=== PATIENT | male | born 1940 | race Caucasian/White ===

== ENCOUNTER 2023-10-12 09:05 | Day surgery (SDC) | payer MEDICARE, OTHER, SELFPAY ==
--- NOTE | 2023-10-12 18:22 | ITS.CL.CARDI ---
Accounts Payables Clerk - Cardioversion
Cardioversion
Procedure Report:
Date of Procedure: 10/12/2023
Procedure: Cardioversion
Indication: Symptomatic atrial fibrillation
Performing Physician: Emilee Chisholm DO [facility]
Anticoagulation: Eliquis
Technique: The patient was brought to the holding area. Signed informed consent was obtained. A time out was called and performed. The patient was anesthetized by the anesthesia service. Anticoagulation status was reviewed and appropriate. R2 pads
were placed anteriorly and posteriorly. A 200 J synchronized biphasic shock restored normal sinus rhythm without significant bradycardia. There were no complications.
Conclusion: Uncomplicated cardioversion from atrial fibrillation to sinus rhythm.
Recommendation: Routine post cardioversion care. Continue keno terminal operator anticoagulation.
== END 2023-10-12 10:15 | disposition home or self-care (01) ==
LOC: CATH 09:05
PROVIDERS: ATTENDING PHYSICIAN Internal Medicine Cardiovascular Disease; FAMILY PHYSICIAN Nurse Practitioner Family; OTHER PHYSICIAN Internal Medicine Cardiovascular Disease
DX: I48.0 Paroxysmal atrial fibrillation (principal); I10 Essential (primary) hypertension; E78.5 Hyperlipidemia, unspecified; Z87.891 Personal history of nicotine dependence; Z79.01 Long term (current) use of anticoagulants
CPT/HCPCS: 92960; 93005

== ENCOUNTER → 2023-11-12 07:54 | Outpatient (REF) | payer MEDICARE, OTHER, SELFPAY | LOC: DHCBC/DCA 07:54 | PROVIDERS: ATTENDING PHYSICIAN Nurse Practitioner; FAMILY PHYSICIAN Nurse Practitioner Family; REFERRING PHYSICIAN Internal Medicine Cardiovascular Disease | DX: I48.0 Paroxysmal atrial fibrillation (principal) | CPT/HCPCS: 78452; 93017; A9500; J2785 ==

== ENCOUNTER → 2023-11-20 11:24 | Outpatient (REF) | payer MEDICARE, OTHER, SELFPAY | LOC: HWRCS 11:24 | PROVIDERS: ATTENDING PHYSICIAN Internal Medicine Cardiovascular Disease; FAMILY PHYSICIAN Nurse Practitioner Family | DX: I48.0 Paroxysmal atrial fibrillation (principal); I10 Essential (primary) hypertension; I47.10 Supraventricular tachycardia, unspecified | CPT/HCPCS: 93306 ==

== ENCOUNTER → 2023-11-26 09:17 | Day surgery (SDC) | payer MEDICARE, OTHER, SELFPAY ==
[2023-11-26 09:30] VITALS: BMI 32.1
--- NOTE | 2023-11-26 10:50 | ITS.CL.CARDI ---
Tile Roofer - Cardioversion
Cardioversion
Procedure Report:
Date of Procedure: Nov 26 2023
Procedure: Cardioversion
Indication: Symptomatic atrial fibrillation
Performing Physician: Keith Weir DO, FACC
Technique: The patient was brought to the holding area. Signed informed consent was obtained. A time out was called and performed. The patient was anesthetized by the anesthesia service. Anticoagulation status was reviewed and appropriate. R2 pads
were placed anteriorly and posteriorly. A 250 J synchronized biphasic shock restored normal sinus rhythm without significant bradycardia. There were no complications.
Conclusion: Uncomplicated cardioversion from atrial fibrillation to sinus rhythm.
Recommendation: Routine post cardioversion care. Continue penitentiary anticoagulation.
== END ==
LOC: CATH 09:17
PROVIDERS: ATTENDING PHYSICIAN Nuclear Medicine Nuclear Cardiology; FAMILY PHYSICIAN Nurse Practitioner Family; OTHER PHYSICIAN Internal Medicine Cardiovascular Disease
DX: I48.0 Paroxysmal atrial fibrillation (principal); I10 Essential (primary) hypertension; E78.5 Hyperlipidemia, unspecified; Z87.891 Personal history of nicotine dependence; Z79.01 Long term (current) use of anticoagulants; Z79.82 Long term (current) use of aspirin
CPT/HCPCS: 92960; 93005

== ENCOUNTER 2024-03-03 06:12 | Day surgery (SDC) | payer MEDICARE, OTHER, SELFPAY ==
[2024-02-25 10:33] VITALS: BMI 32.3
[2024-03-03] VITALS (23 sets, daily range): BP systolic 131–164; BP diastolic 59–80; BMI 32.9
--- NOTE | 2024-03-03 08:05 | ITS.CL.ABL ---
Medical Assembly - Ablation
Ablation
Procedure Report:
ELECTROPHYSIOLOGIC STUDY AND POSSIBLE ABLATION
DATE: March 03, 2024
Primary Care Provider: KRISTIE Evans
INDICATION:
Symptomatic Atrial Fibrillation.
Persistent
HISTORY: See H and P.
Symptomatic AF, poorly controlled with attempted medical .
He has history of symptomatic atrial fibrillation, atrial flutter and morecently atrial tachycardia.
� -� ablation of atrial flutter as well as Cryo�pulmonary vein isolation in Nov 2016.
� -� amiodarone initiated 11/12/2023
� -� cardioversion on 11/26/2023
� -� Amiodarone discontinued in December 2023 due to symptomatic bradycardia
� -� seen in the emergency department December 30, 2022 for palpitations and cardioverted from atrial tachycardia to sinus rhythmtherapy
HAS-BLED:
Age
CHADSVASc: 3
HTN
Age
PRESENTING RHYTHM: SR
HISTORY: See H and P.
Symptomatic AF, poorly controlled with attempted medical therapy.
ANTICOAGULATION: Apixaban 5 mg twice daily
'TIME-OUT': called and confirmed.
SEDATION/ANESTHESIA: provided via the anesthesia department using general anesthesia.
PROCEDURE:
Ultrasound Guidance performed by pa was utilized for femoral venous Vascular Access b/l.
A decapolar CS catheter was placed within the CS for mapping and pacing.
The intracardiac ultrasound catheter was positioned in the RA for continuous intracardiac ultrasound imaging.
Heparin bolus and infusion to target ACT at 300 -350 seconds was administered. Transseptal puncture was performed. This entailed advancing a sheath with dilator into the superior vena cava and withdrawing both (monitoring intracardiac ultrasound,
fluoroscopy and tip pressure) with the tip oriented toward the atrial septum. The fossa ovalis was engaged (indicated by sudden displacement of the sheath tip as well as tenting of the fossa seen on intracardiac ultrasound).
The [employer] transseptal system was used. Left atrial catheter position was confirmed by echocardiographic imaging and fluoroscopy followed by RF delivery using the [employer] system resulting in successful LA access with pressure monitoring
demonstrating LA pressure waveforms (LA mean pressure 12 mm Hg). The sheath was advanced over the dilator and positioned in the left atrium.
The [employer] multipolar mapping catheter was initially positioned through the transseptal sheath for high density mapping.
Geometry and voltage mapping was performed using the [employer] multipolar grid catheter. [employer] was utilized for three-dimensional electroanatomical mapping.
A 3-D map was created using [employer] in Voxel mode. A 3-D reconstructed CT image was compared to the 3-D [employer] map to assist in anatomic evaluation, mapping and ablation.
Mapping in sinus rhythm findings electrical isolation of the ostia of the LSPV, LIPV, and RIPV with a small area of reconnection at the RSPV ant-sup quadrant.
The [employer] PFA catheter and system was used for cardiac ablation. Catheter positioning was guided and confirmed using both I.C.E. and fluoroscopy.
PV re-isolation as well as LA post wall ablation as an additional ablation set was the approach. At completion of pulsed field ablation of the left atrium remapping finds entrance and exit block at each PV ostia (LSPV, LIPV, RSPV, RIPV) as well as
the posterior wall of the left atrium.
Programmed electrical stimulation was then performed. With burst atrial pacing at 250 ms and atrial flutter is induced. Extensive activation as well as entrainment mapping of both the left atrium and the right atrium defines right atrial CTI
dependent clockwise flutter. The PFA catheter was repositioned within the right atrium. Phenylephrine was used to increase his systolic blood pressure to greater than 150 mmHg. Then 200 mcg of nitroglycerin intravenously was administered. Then,
using a ' basket' and 'olive' configuration PFA was delivered to the CTI at a 6:00 line and JOHAN 30 degrees. With PFA delivery first at the inferior border of the line atrial flutter terminated to sinus rhythm. Additional applications were
delivered to complete a PFA line from the inferior vena cava to the tricuspid valve annulus. There is no ST segment changes on twelve-lead electrocardiogram. Intracardiac echocardiogram finds no wall motion abnormalities.
I.C.E. :
Pre-Ablation Post-Ablation
LVEF: 55 % 55 %
WMA: none none
Pericardial effusion: trace post trace post
COMPLICATIONS:
None
SUMMARY:
- Mapping and ablation to isolate the PVs (reisolation of the pulmonary veins)
- Additional AF ablation set after PVI (left atrial posterior wall mapping and ablation).
- Mapping and ablation of second tachycardia (right atrial CTI dependent clockwise flutter)
- 3-D Electroanatomical Mapping
- Intracardiac Ultrasound
Post ablation, I discussed today's findings and results with the patient's , Charlene.
RECOMMENDATIONS:
- Observe in monitored bed.
- Maintain oral anticoagulation.
- Office visit with EP JONATHAN in 2-4 weeks and with me in 4 months.
Copy to: KRISTIE Evans
[2024-03-03 08:42] LABS: ACT-LR - POC 265 Seconds (116-155)
[2024-03-03 09:02] LABS: ACT-LR - POC 310 Seconds (116-155)
--- NOTE | 2024-03-03 11:03 | PTCARENOTE ---
Dr Breen is at pt bedside speaking to pt and pt's .
[2024-03-03] MEDS: ANESTHETIC LOZENGE 1 LOZENGE PO (12:05)
--- NOTE | 2024-03-03 13:19 | PTCARENOTE ---
Bedside report taken from Vinicio CHEN for break relief. Pt resting in stretcher HOB 40 degrees with at bedside. No complaints at this time, denies pain. SEWING TECHNIQUES DEMONSTRATOR at bedside checking on pt and EKG. Will continue to monitor pt.
--- NOTE | 2024-03-03 13:52 | PTCARENOTE ---
Trudy return from break. Bedside report given.
--- NOTE | 2024-03-03 14:12 | W.PN.UPDATE ---
Update Note
Progress Note Update
Pt seen post AFib/AFlutter PFA. Right groin site without ht/bleeding, non tender. OOB ambulating, urinating without difficulty. Post EKG NSR 70s w/anterior Q waves as before, no acute changes. Resume eliquis this evening, continue other meds as
before. Foll[facility] at [facility] as scheduled. Home later today if groin site/tele remain stable.
== END 2024-03-03 14:45 | disposition home or self-care (01) ==
LOC: CATH 06:12
PROVIDERS: ATTENDING PHYSICIAN Internal Medicine Cardiovascular Disease; FAMILY PHYSICIAN Nurse Practitioner Family
DX: I48.19 Other persistent atrial fibrillation (principal); Z79.01 Long term (current) use of anticoagulants; Z79.82 Long term (current) use of aspirin; Z79.899 Other long term (current) drug therapy; I10 Essential (primary) hypertension; E78.5 Hyperlipidemia, unspecified; I48.4 Atypical atrial flutter
CPT/HCPCS: C1732; C1730; C1894; C1892; 85347; 93005; 93655; 93656; 93657; C1733; C1766